=== PATIENT | female | born 1985 | race Two or more races ===

== ENCOUNTER → 2019-04-10 | Emergency (ER) | payer MEDICAID | END | disposition left against medical advice (07) | LOC: ER 22:19 | DX: M25.562 Pain in left knee (principal); Z53.21 Procedure and treatment not carried out due to patient leaving prior to being seen by health care provider ==

== ENCOUNTER 2024-01-05 22:22 | Emergency (ER) | payer MEDICAID ==
[~2024-01-05] VITALS: Ht 162.6 cm; Wt 54.5 kg
[2024-01-05 23:28] LABS: Basophils # (auto) 0 10 ^3/uL (0-0.2); Basophils % (auto) 0.2 % (0.0-2.0); Eosinophils # (auto) 0 10 ^3/uL (0-0.8); Lymphocytes # (auto) 1.1 10 ^3/uL (0.4-5.4)
[2024-01-05 23:30] LABS: Eosinophils % (auto) 0.3 % (0.0-7.0); Hematocrit 34.7 % (36.0-46.0); Hemoglobin 11.5 g/dL (12.2-16.2); Lymphocytes % (auto) 9.7 % (10.0-50.0); Mean Corpuscular Hemoglobin 26.7 pg (28.0-32.0); Mean Corpuscular Hgb Conc. 33.2 g/dL (32.0-36.0); Mean Corpuscular Volume 80.6 fL (80.0-100.0); Monocytes # (auto) 0.4 10 ^3/uL (0-1.3); Monocytes % (auto) 3.8 % (0.0-12.0); Nucleated Red Blood Cells % 0.1 %; Platelet Count (auto) 313 10^3/uL (140-450); Red Blood Cells 4.31 10^6/uL (4.0-5.20); White Blood Cell 11.6 10^3/uL (4.4-10.8)
[2024-01-05 23:41] LABS: Chloride 109 mmol/L (98-107); Potassium 3.2 mmol/L (3.5-5.1); Sodium 139 mmol/L (136-145)
[2024-01-05 23:42] LABS: Anion Gap 4 (5-15); Calcium 9.4 mg/dL (8.7-10.4); Carbon Dioxide 26 mmol/L (20-31)
[2024-01-05 23:47] LABS: BUN/Creatinine Ratio 13.9 (10.0-20.0); Blood Alcohol < 3.0 mg/dL (<10); Blood Urea Nitrogen 11 mg/dL (9-23); Glucose 166 mg/dL (74-106)
[2024-01-06] MEDS: diphenhdrAMINE HCL 50 MG/1 ML VL IV ONE (00:06)
[2024-01-06 00:12] VITALS: PULSE 75; RESP 15; O2SAT 100
[2024-01-06] MEDS: IOHEXOL 300 MG/ML 100ML BOTTLE IJ ONE (00:17)
[2024-01-06 04:00] VITALS: BP 99/63; PULSE 76; RESP 19; O2SAT 96
== END 2024-01-06 05:37 | disposition home or self-care (01) ==
LOC: ER 22:22 → EDBD 22:22 → EDUNIT# 22:22 → ER 01-06 05:20
DX: S01.81XA Laceration without foreign body of other part of head, initial encounter (principal); R10.2 Pelvic and perineal pain; S80.212A Abrasion, left knee, initial encounter; M54.50 Low back pain, unspecified; V89.2XXA Person injured in unspecified motor-vehicle accident, traffic, initial encounter; Y93.I9 Activity, other involving external motion; Y92.89 Other specified places as the place of occurrence of the external cause; Y99.8 Other external cause status
CPT/HCPCS: 36415; 70450; 70486; 71260; 72125; 74177; 80048; 80320; 84702; 85025; 96374; 99285; J1200; Q9967